=== PATIENT | female | born 1980 | race African-American/Black ===

== ENCOUNTER 2016-10-19 12:22 | Emergency (ER) | payer OTHER | END 2016-10-19 14:25 | disposition home or self-care (01) | LOC: FER 12:22 | DX: S83.92XA Sprain of unspecified site of left knee, initial encounter (principal); W01.0XXA Fall on same level from slipping, tripping and stumbling without subsequent striking against object, initial encounter; Y92.009 Unspecified place in unspecified non-institutional (private) residence as the place of occurrence of the external cause | CPT/HCPCS: 73564; J1885 ==

== ENCOUNTER 2020-07-14 20:31 | Emergency (ER) | payer OTHER ==
[~2020-07-14 20:31] MED LIST: IBUPROFEN800 MG PO; PERCOCET 5-3251 EACH PO; TESSALON PERLE100 MG PO; VOLTAREN **OUT75 MG PO; ZOVIRAX200 MG PO
[2020-07-14] MEDS ORDERED: PERCOCET 5-3251 EACH PO (23:27)
== END 2020-07-14 23:49 | disposition home or self-care (01) ==
LOC: FER 20:31
DX: S83.511A Sprain of anterior cruciate ligament of right knee, initial encounter (principal); F17.210 Nicotine dependence, cigarettes, uncomplicated; Z87.828 Personal history of other (healed) physical injury and trauma; W00.0XXA Fall on same level due to ice and snow, initial encounter; Y92.009 Unspecified place in unspecified non-institutional (private) residence as the place of occurrence of the external cause
CPT/HCPCS: 73564

== ENCOUNTER 2020-12-08 09:22 | Emergency (ER) | payer OTHER ==
[2020-12-08] MEDS ORDERED: ROBAXIN750 MG PO (11:34)
[2020-12-08] MEDS ORDERED: NAPROXEN500 MG PO (11:34)
[2020-12-08] MEDS ORDERED: NORCO 5-325 TA1 EACH PO (11:34)
== END 2020-12-08 11:45 | disposition home or self-care (01) ==
LOC: FER 09:22
DX: S20.211A Contusion of right front wall of thorax, initial encounter (principal); S10.91XA Abrasion of unspecified part of neck, initial encounter; G54.0 Brachial plexus disorders; Y04.2XXA Assault by strike against or bumped into by another person, initial encounter; Y92.009 Unspecified place in unspecified non-institutional (private) residence as the place of occurrence of the external cause
CPT/HCPCS: 71046; 72040; 73030